=== PATIENT | female | born 1945 | race Caucasian/White ===

== ENCOUNTER → 2016-07-31 | Outpatient (CLI) | payer OTHER, MEDICARE | LOC: FIMAGING 15:37 | PROVIDERS: ATTEND Internal Medicine Hematology & Oncology | DX: R91.8 Other nonspecific abnormal finding of lung field (principal); Z85.118 Personal history of other malignant neoplasm of bronchus and lung ==

== ENCOUNTER → 2016-11-15 | Outpatient (CLI) | payer OTHER, MEDICARE | LOC: EDSTATUS 13:41 → FIMAGING 15:34 | PROVIDERS: ATTEND Internal Medicine Hematology & Oncology | DX: Z08 Encounter for follow-up examination after completed treatment for malignant neoplasm (principal); Z85.118 Personal history of other malignant neoplasm of bronchus and lung ==

== ENCOUNTER → 2017-06-16 | Outpatient (CLI) | payer OTHER, MEDICARE | LOC: FIMAGING 15:23 | PROVIDERS: ATTEND Internal Medicine Hematology & Oncology | DX: M47.812 Spondylosis without myelopathy or radiculopathy, cervical region (principal); C34.90 Malignant neoplasm of unspecified part of unspecified bronchus or lung ==

== ENCOUNTER → 2017-08-04 | Outpatient (CLI) | payer OTHER, MEDICARE | LOC: FIMAGING 15:20 | PROVIDERS: ATTEND Internal Medicine Hematology & Oncology | DX: Z08 Encounter for follow-up examination after completed treatment for malignant neoplasm (principal); Z85.118 Personal history of other malignant neoplasm of bronchus and lung ==

== ENCOUNTER → 2017-12-05 | Outpatient (CLI) | payer OTHER, MEDICARE | LOC: FIMAGING 15:08 | DX: Z12.31 Encounter for screening mammogram for malignant neoplasm of breast (principal); Z80.3 Family history of malignant neoplasm of breast ==